=== PATIENT | female | born 1930 | race Caucasian/White ===

== ENCOUNTER 2018-05-07 15:46 | Inpatient (IN) | payer OTHER, MEDICARE ==
[~2018-05-07] VITALS: Ht 157.5 cm; Wt 51.0 kg
[~2018-05-07 15:46] MED LIST: COUMADIN5 M2 PO; DIGOXIN125 MCG PO; ELIQUIS2.5 M1 PO; FERROUS SULFAT325 M2 PO; LASIX20 M1 PO; METOPROLOL TART25 M1 PO; NORVASC2.5 M1 PO; OMEPRAZOLE20 M2 PO; TOPROL XL100 M1 PO
--- NOTE | 2018-05-07 15:57 | ED MVC/FALL/TRAUMA COMPLAINT ---
History of Present Illness General Chief Complaint: Fall Stated Complaint: FALL, LEFT LEG PAIN Source: patient, old records, EMS Exam Limitations: no limitations Vital Signs & Intake/Output Vital Signs & Intake/Output Vital Signs Date Time Temp Pulse Resp B/P B/P Pulse O2 O2 Flow FiO2 Mean Ox Delivery Rate 05/07 1656 99 15 129/85 95 Nasal 2.0L Cannula 05/07 1646 Room Air 05/07 1549 94 Nasal 2.0L Cannula 05/07 1549 98.4 107 18 113/75 89 Room Air Allergies Coded Allergies: pneumococcal 7-valent conjugate to (From PREVNAR) (SHOULDER TO ELBOW SWOLLEN AND RED FOR A WEEK 05/07/18) propranolol (UNKNOWN PER PT CANT REMEMBER 05/07/18) Reconcile Medications Apixaban (Eliquis) 2.5 MG TABLET 1 TAB PO BID BLOOD THINNER (Reported) Diltiazem HCl (Cardizem) 120 MG TABLET 1 TAB PO BID HEART/BP (Reported) Ferrous Sulfate 325 MG (65 MG IRON) TABLET 1 TAB PO DAILY SUPPLEMENT ( Reported) Furosemide (Lasix) 40 MG TABLET 1 TAB PO QAM DIURETIC (Reported) Oxycodone HCl/Acetaminophen (Percocet 5-325 MG Tablet) 5 MG-325 MG TABLET 1 TAB PO TID PRN PAIN (Reported) Triage Note: PT HAS FALLEN 3X TODAY. PT STATES THAT SHE FEELS "FLIGHTY" PT STATES THAT SHE HAS HX OF AFIB, ON THINNERS. STATES DID NOT FEEL LIKE HER HEART WENT INTO AFIB. SHE STATES THAT ONE OF HER FALLS SHE HIT HER HEAD. STATES THAT HER LEFT KNEE TO FOOT HURTS AND THERE IS SWELLING AND SHE STATES SHE COULD NOT WALK ON LEG . PT ALSO STARTED CARDIZEM. AOX4. Triage Nurses Notes Reviewed? yes HPI: 87F PMH HTN, atrial fibrillation on Eliquis, presents with multiple falls. Patient was in her usual state of health, when this morning her left knee felt weak. Her knee gave out on her and she fell to the ground, striking her left hip. She was able to get up on her own and without pain. She fell again in the same way about an hour later, was able to get up, and then fell a third time, this time striking her head. She denies any symptoms prior to the falls, denying chest pain, palpitations, lightheadedness, confusion. She reports the falls are due primarily to knee weakness. She reports mild left knee pain now but is otherwise well. She denies vision changes, n/v/d, hearing changes, weakness, numbness, chest pain, palpitations, SOB, abdominal pain, diarrhea, dysuria. Past History Travel History Traveled to [place] past 21 day No Medical History Any Pertinent Medical History? see below for history Neurological: NONE EENT: cataracts, macular degeneration Cardiovascular: AFIB, hypertension Respiratory: NONE Gastrointestinal: "benign" colon polyps removed approx 2010 in [place], [place]- Dr. David Hepatic: NONE Renal: NONE Musculoskeletal: degen joint disease, osteoarthritis, spinal stenosis Psychiatric: NONE Endocrine: NONE Blood Disorders: NONE Cancer(s): NONE [employer]/Reproductive: NONE History of MRSA: No History of VRE: No History of CDIFF: No Pneumonia Vaccine: 09/01/15 Surgical History Surgical History: appendectomy, cataract removal, tonsillectomy Psychosocial History Who do you live with Sister Services at Home None What is your primary language German Family History Family History, If Any: MOTHER (DM). , Age 79; Cause: ASHD (arteriosclerotic heart disease). FATHER, , Age 63; Cause: Esophageal cancer. SISTER, , Age 82; Cause: Cancer of unknown origin. Hx Contributory? No Review of Systems Review of Systems Constitutional: Reports: no symptoms. Eyes: Reports: no symptoms. Ears, Nose, Throat, Mouth: Reports: no symptoms. Respiratory: Reports: no symptoms. Cardiovascular: Reports: no symptoms. Gastrointestinal/Abdominal: Reports: no symptoms. Genitourinary: Reports: no symptoms. Musculoskeletal: Reports: no symptoms. Skin: Reports: no symptoms. Neurological/Psychological: Reports: no symptoms. All Other Systems: Reviewed and Negative Physical Exam Physical Exam General Appearance: well developed/nourished, no apparent distress Head: atraumatic, normal appearance Eyes: Bilateral: normal appearance, PERRL, EOMI, normal inspection. Ears, Nose, Throat, Mouth: hearing grossly normal, moist mucous membrane Neck: normal inspection, supple, full range of motion Respiratory: normal breath sounds, chest non-tender, no respiratory distress Cardiovascular: regular rate/rhythm Gastrointestinal: soft, non-tender Back: normal inspection, normal range of motion, no vertebral tenderness Extremities: normal range of motion Neurologic/Psych: awake, alert, oriented x 3, normal mood/affect Skin: intact, normal color, warm/dry Core Measures ACS in differential dx? No CVA/TIA Diagnosis No Sepsis Present: No Sepsis Focused Exam Completed? No Progress Differential Diagnosis: C/T/L spine injury, ext injury, pelvis injury, spinal cord injury Plan of Care: Orders Procedure Date/time Status Regular Diet 05/08 B Active ED Holding Orders 05/07 1755 Active Admit to inpatient 05/07 1755 Active Vital Signs 05/07 1755 Active Patient Data 05/07 175 Active URINE DRUG SCREEN FOR ER ONLY 05/07 155 Complete URINALYSIS 05/07 155 Complete PARTIAL THROMBOPLASTIN TIME 05/07 155 Complete PROTHROMBIN TIME 05/07 155 Complete ETHANOL 05/07 155 Complete COMPREHENSIVE METABOLIC PANEL 05/07 155 Complete CBC WITHOUT DIFFERENTIAL 05/07 155 Complete EKG 05/07 1549 Active XRY-CHEST XRAY, TWO VIEWS 05/07 UNK Active Laboratory Tests 05/07/18 1655: Urine Opiates Screen 270, Methadone Screen 57, Barbiturate Screen < 60, Ur Phencyclidine Scrn < 6.00, Amphetamines Screen < 100, U Benzodiazepines Scrn < 85, Urine Cocaine Screen < 50, Urine Cannabis Screen < 5.00, Urine Color YEL, Urine Clarity CLEAR, Urine pH 7.5, Ur Specific [place] 1.015, Urine Protein NEG, Urine Ketones TRACE H, Urine Nitrite NEG, Urine Bilirubin NEG, Urine Urobilinogen 2.0 H, Ur Leukocyte Esterase NEG, Ur Microscopic EXAM NOT REQUIRED , Urine Hemoglobin NEG, Urine Glucose NEG 05/07/18 1640: Anion Gap 11, Estimated GFR > 60, BUN/Creatinine Ratio 28.0 H, Glucose 113 H, Calcium 9.4, Total Bilirubin 1.4 H, AST 26, ALT 36, Alkaline Phosphatase 166 H , Total Protein 6.8, Albumin 3.7, Globulin 3.1, Albumin/Globulin Ratio 1.2, PT 14.8 H, INR 1.35 H, APTT 32, CBC w Diff NO MAN DIFF REQ, RBC 4.22, MCV 93.9, MCH 31.5 H, MCHC 33.5, RDW 15.6 H, MPV 7.2 L, Gran % 90.6 H, Lymphocytes % 5.2 L, Monocytes % 3.9, Eosinophils % 0.3, Basophils % 0, Absolute Granulocytes 10.4 H, Absolute Lymphocytes 0.6 L, Absolute Monocytes 0.5, Absolute Eosinophils 0, Absolute Basophils 0, Serum Alcohol < 10.0 Diagnostic Imaging: Viewed by Me: Radiology Read, CT Scan. Discussed w/RAD: Radiology Read, CT Scan. Radiology Impression: PATIENT: SHARAD MCGILL PRESENT AGE: 87 PATIENT ACCOUNT NO: [id number] : [birth year] LOCATION: ER ORDERING PHYSICIAN: Riya Lino MD SERVICE DATE: 05/07/18 EXAM TYPE: RAD - XRY-KNEE, LEFT EXAMINATION: XR KNEE, LEFT CLINICAL INFORMATION: Rule out fracture fall COMPARISON: None available at the time of this dictation. TECHNIQUE: frontal, lateral, tunnel and patella sunrise views FINDINGS: BONES: No fracture or dislocation is present. JOINTS: Narrowing of joint spaces suggest underlying mild DJD. SOFT TISSUE: There are heavy vascular calcifications. IMPRESSION: No fracture. Mild DJD and heavy vascular calcifications. DICTATED BY: Artie Petty MD DATE/TIME DICTATED:05/07/181657 PRUNE WASHER:RIAZ DATE/TIME TRANSCRIBED:05/07/181657 CONFIDENTIAL, DO NOT COPY WITHOUT APPROPRIATE AUTHORIZATION. <Electronically signed in Other Vendor System> SIGNED BY: Artie Petty MD 05/07/18 1703, PATIENT: SHARAD MCGILL PRESENT AGE: 87 PATIENT ACCOUNT NO: [id number] : [birth year] LOCATION: [facility] ORDERING PHYSICIAN: Riya Lino MD SERVICE DATE: 05/07/18 EXAM TYPE : RAD - XRY-HIP 2-3 VIEWS, LEFT EXAMINATION: XR HIP, LEFT , AP pelvis CLINICAL INFORMATION: Fall rule out fracture COMPARISON: None available at the time of this dictation. TECHNIQUE: Frontal and lateral views of the hip acquired. , AP pelvis FINDINGS: There is no evidence of acute fracture or dislocation. There are mild degenerative arthritic changes of the hip evident by sclerotic changes of the acetabular roof and narrowing of the joint space. Mild degenerative changes of the symphysis pubis. Mild degenerative changes of the SI joints. Adjacent pubic rami are intact. Surrounding soft tissues are unremarkable. Radiolucency projecting over the LEFT femoral neck on one view only felt to be an artifact. This does not persist on other views. IMPRESSION: Mild degenerative arthritis. No fracture. Normal radiograph does not entirely exclude the possibility of hip fracture. If there is a high clinical suspicion for a fracture, MRI might be indicated. DICTATED BY: Artie Petty MD DATE/TIME DICTATED:05/07/181658 PRUNE WASHER:RIAZ DATE/TIME TRANSCRIBED:1658 CONFIDENTIAL, DO NOT COPY WITHOUT APPROPRIATE AUTHORIZATION. < Electronically signed in Other Vendor System> SIGNED BY: Artie Petty MD 05/07/181704, PATIENT: SHARAD MCGILL PRESENT AGE: 87 PATIENT ACCOUNT NO: [id number] : [birth year] LOCATION: [facility] ORDERING PHYSICIAN: Riya Lino MD SERVICE DATE: 05/07/18 EXAM TYPE: CAT - CT HEAD WO IV CONTRAST EXAMINATION: CT HEAD WITHOUT CONTRAST CLINICAL INFORMATION: Status post fall with head strike. Patient is on Coumadin. Suspected intracranial bleed. COMPARISON: None TECHNIQUE: Contiguous axial imaging was performed from the skull base to vertex without intravenous administration of contrast. DLP: 539.9 mGy-cm FINDINGS: There is no evidence of acute intracranial hemorrhage or territorial infarction. No abnormal mass effect or midline shift is seen. Abdullahi to white matter differentiation is well preserved. No extra-axial fluid collections are identified. The ventricles are normal in size. Mild age- appropriate diffuse cortical atrophy and mild chronic microvascular deep white matter ischemic changes are present. Bilateral basal ganglia calcifications are noted. There is a sub-5 mm hypodensity identified without any mass effect involving the posterior limp of the internal capsule on the left, likely representing old lacunar infarction. The osseous structures and soft tissues are normal. The mastoid air cells and visualized portions of the paranasal sinuses are well aerated. IMPRESSION: 1. No acute intracranial pathology, specifically no acute intracranial hemorrhage.. 2. 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 DICTATED BY: Honey Batres MD DATE/TIME DICTATED:05/07/181625 PRUNE WASHER:RIAZ DATE/ TIME TRANSCRIBED:05/07/181625 CONFIDENTIAL, DO NOT COPY WITHOUT APPROPRIATE AUTHORIZATION. <Electronically signed in Other Vendor System> SIGNED BY: Honey Batres MD 05/07/18 1634 Departure Departure Disposition: STILL A PATIENT Condition: Stable Clinical Impression Primary Impression: Fall Qualifiers: Encounter type: initial encounter Qualified Code: W19.XXXA - Unspecified fall, initial encounter Secondary Impressions: Hypoxia, Left leg weakness Referrals: Mukesh Cornejo MD Departure Forms: Customer Survey General Discharge Information Admission Note Documentation of Exam: Documentation of any treatments & extenuating circumstances including Concerns Regarding Discharge (functional status, medication knowledge or non-compliance, living conditions, etc.) that warrant an admission rather than observation: multiple falls today due to left knee weakness, head strike on last fall, patient on Eliquis, hypoxic 87% by EMS requiring 4L NC. Will admit to medicine for repletion of electrolytes, case management, physical therapy, pulmonary consult, workup of unexplained hypoxia.
[2018-05-07] MEDS ORDERED: ELIQUIS2.5 M1 PO (16:32)
[2018-05-07] MEDS ORDERED: CARDIZEM120 M1 PO (16:33)
[2018-05-07] MEDS ORDERED: PERCOCET 5-3251 EACH PO (16:33)
[2018-05-07] MEDS ORDERED: LASIX40 M1 PO (16:34)
[2018-05-07] MEDS ORDERED: FERROUS SULFAT325 M3 PO (16:34)
--- NOTE | 2018-05-07 16:34 | CT SCAN REPORT ---
EXAMINATION: CT HEAD WITHOUT CONTRAST CLINICAL INFORMATION: Status post fall with head strike. Patient is on Coumadin. Suspected intracranial bleed. COMPARISON: None TECHNIQUE: Contiguous axial imaging was performed from the skull base to vertex without intravenous administration of contrast. DLP: 539.9 mGy-cm FINDINGS: There is no evidence of acute intracranial hemorrhage or territorial infarction. No abnormal mass effect or midline shift is seen. Abdullahi to white matter differentiation is well preserved. No extra-axial fluid collections are identified. The ventricles are normal in size. Mild age-appropriate diffuse cortical atrophy and mild chronic microvascular deep white matter ischemic changes are present. Bilateral basal ganglia calcifications are noted. There is a sub-5 mm hypodensity identified without any mass effect involving the posterior limp of the internal capsule on the left, likely representing old lacunar infarction. The osseous structures and soft tissues are normal. The mastoid air cells and visualized portions of the paranasal sinuses are well aerated. IMPRESSION: 1. No acute intracranial pathology, specifically no acute intracranial hemorrhage.. 2. 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
[2018-05-07 16:47] LABS: ABSOLUTE BASOPHIL COUNT 0 /CUMM (0.0-0.2); ABSOLUTE EOSINOPHIL COUNT 0 /CUMM (0.0-0.7); ABSOLUTE GRANULOCYTE CT 10.4 /CUMM (1.4-6.5); ABSOLUTE LYMPH COUNT 0.6 /CUMM (1.2-3.4); ABSOLUTE MONOCYTE COUNT 0.5 /CUMM (0.10-0.60); BASOPHIL % 0 % (0.0-2.0); EOSINOPHIL % 0.3 % (0-5); HEMATOCRIT 39.7 % (37-47); MEAN CORPUSCULAR HGB 31.5 PG (27.0-31.0); MEAN CORPUSCULAR HGB CONC 33.5 G/DL (33.0-37.0); MEAN CORPUSCULAR VOLUME 93.9 FL (81.0-99.0); MEAN PLATELET VOLUME 7.2 FL (7.4-10.4); PLATELET COUNT 320 /CUMM (130-400); RBC DISTRIBUTION WIDTH 15.6 % (11.5-14.5); RED BLOOD CELL CT 4.22 /CUMM (4.20-5.40); WHITE BLOOD CELL COUNT 11.5 /CUMM (4.8-10.8)
[2018-05-07 16:56] LABS: PT 14.8 SEC (9.4-12.5); PTT 32 SEC (25-37)
--- NOTE | 2018-05-07 17:03 | RADIOLOGY REPORT ---
EXAMINATION: XR KNEE, LEFT CLINICAL INFORMATION: Rule out fracture fall COMPARISON: None available at the time of this dictation. TECHNIQUE: frontal, lateral, tunnel and patella sunrise views FINDINGS: BONES: No fracture or dislocation is present. JOINTS: Narrowing of joint spaces suggest underlying mild DJD. SOFT TISSUE: There are heavy vascular calcifications. IMPRESSION: No fracture. Mild DJD and heavy vascular calcifications.
[2018-05-07 17:04] LABS: GRANULOCYTE % 90.6 % (42.2-75.2)
--- NOTE | 2018-05-07 17:05 | RADIOLOGY REPORT ---
EXAMINATION: XR HIP, LEFT , AP pelvis CLINICAL INFORMATION: Fall rule out fracture COMPARISON: None available at the time of this dictation. TECHNIQUE: Frontal and lateral views of the hip acquired. , AP pelvis FINDINGS: There is no evidence of acute fracture or dislocation. There are mild degenerative arthritic changes of the hip evident by sclerotic changes of the acetabular roof and narrowing of the joint space. Mild degenerative changes of the symphysis pubis. Mild degenerative changes of the SI joints. Adjacent pubic rami are intact. Surrounding soft tissues are unremarkable. Radiolucency projecting over the LEFT femoral neck on one view only felt to be an artifact. This does not persist on other views. IMPRESSION: Mild degenerative arthritis. No fracture. Normal radiograph does not entirely exclude the possibility of hip fracture. If there is a high clinical suspicion for a fracture, MRI might be indicated.
--- NOTE | 2018-05-07 17:26 | History & Physical ---
Karly Hernández 05/07/18 1724: General Information and HPI MD Statement: I have seen and personally examined SHARAD MCGILL and documented this H&P. The patient is a 87 year old F who presented with a patient stated chief complaint of []. Source of Information: patient, family, 81 year old sister present with whom the patient lives Exam Limitations: no limitations History of Present Illness: 87 year old female with PMH Afib on Eliquis, CHF, HTN, DJD, history of falls, history of PNA presenting with multiple mechanical falls today. Patient normally ambulates with a walker, but was not using it today. She states regardless of using the walker, her left knee 'gives out' on her abruptly. Each fall was witnessed by her 81 year old sister with whom she lives. The first two falls they were able to get her up, but had to call EMS on the third fall. She did hit her head, but denies LOC. She endorses slight dizziness today and generally not feeling well although she cannot describe it. She attributes this to her Lasix dose of 40mg daily. She states she spends 4 hours on the toilet each day. She denies palpitations, n/v/d, chest pain, SOB, headache, blurry vision, abdominal pain, dysuria. Of note: she was recently hospitalized at [facility] for PNA and was discharged to an STR. She was released from the STR on April 29. She states she does not use oxygen at home and her follow up appointments with her doctors have all shown sats in 90s. She does not know why she is hypoxic here in the ED and does not feel short of breath. Allergies/Medications Allergies: Coded Allergies: pneumococcal 7-valent conjugate to (From PREVNAR) (SHOULDER TO ELBOW SWOLLEN AND RED FOR A WEEK 05/07/18) propranolol (UNKNOWN PER PT CANT REMEMBER 05/07/18) Compliance With Home Meds: GOOD Past History Travel History Traveled to [place] past 21 day No Medical History Neurological: NONE EENT: cataracts, macular degeneration Cardiovascular: AFIB, hypertension Respiratory: NONE Gastrointestinal: "benign" colon polyps removed approx 2010 in [place], [place]- Dr. David Hepatic: NONE Renal: NONE Musculoskeletal: degen joint disease, osteoarthritis, spinal stenosis Psychiatric: NONE Endocrine: NONE Blood Disorders: NONE Cancer(s): NONE ADMISSIONS OFFICER/Reproductive: NONE History of MRSA: No History of VRE: No History of CDIFF: No Pneumonia Vaccine: 09/01/15 Surgical History Surgical History: appendectomy, cataract removal, tonsillectomy Past Family/Social History Family History Relations & Conditions if any MOTHER (DM). , Age 79; Cause: ASHD (arteriosclerotic heart disease). FATHER, , Age 63; Cause: Esophageal cancer. SISTER, , Age 82; Cause: Cancer of unknown origin. Psychosocial History Where do you live? Home (with her sister who is 81) Who Do You Live With? with her younger sister, Awa Spak Services at Home: None Primary Language: Telugu Smoking Status: Never Smoked ETOH Use: denies use Illicit Drug Use: denies illicit drug use Living Will? no Power of Cnc Specialist/HCP? no Functional Ability ADLs Independent: dressing, eating, toileting, bathing. Ambulation: cane IADLs Independent: shopping, housework, finances, food prep, telephone, medication admin. Unknown: transportation. Review of Systems Review of Systems Constitutional: Reports: weakness. Denies: chills, fever, malaise. EENTM: Denies: no symptoms. Cardiovascular: Denies: no symptoms. Respiratory: Denies: no symptoms. GI: Denies: no symptoms. Genitourinary: Denies: no symptoms. Musculoskeletal: Reports: joint pain. Denies: back pain, neck pain. Skin: Reports: no symptoms (tip of nose with black lesion), lesions. Exam & Diagnostic Data Last 24 Hrs of Vital Signs/I&O Vital Signs Date Time Temp Pulse Resp B/P B/P Pulse O2 O2 Flow FiO2 Mean Ox Delivery Rate 05/07 1656 99 15 129/85 95 Nasal 2.0L Cannula 05/07 1646 Room Air 05/07 1549 94 Nasal 2.0L Cannula 05/07 1549 98.4 107 18 113/75 89 Room Air Intake & Output 05/07 1600 05/07 0800 05/07 0000 Intake Total Output Total Balance Patient 130 lb Weight Weight Estimated Measurement Method Physical Exam General Appearance Alert, Oriented X3, Cooperative, No Acute Distress, pettite woman Skin see HEENT Skin Temp/Moisture Exam: Warm/Dry HEENT Atraumatic, PERRLA, Tip of nose with black 3x2mm lesion Neck Supple Cardiovascular irregularly irregular Lungs Clear to Auscultation Abdomen Normal Bowel Sounds, Soft, No Tenderness Extremities Normal Pulses, decreased range of motion LLE at knee joint 2/2 pain. small area of ecchymosis medial aspect of knee Assessment/Plan Assessment: 87 year old female with PMH Afib on Eliquis, CHF, HTN, DJD, history of falls, history of PNA presenting with multiple mechanical falls (three in one day). Work up in the ED revealed hypoxia, hypokalemia, and slight elevated WBC. All imaging was negative for fx. CXR pending. Patient will be admitted to general medicine floor for further care of the following: Problem List: 1. Witnessed mechanical falls (x3 in one day) 2. Hypokalemia 3. Acute hypoxic respiratory distress 4. Mild hyperbilirubinemia 5. h/o Afib on Eliquis 6. h/o CHF unknown EF Admission Data: VS T98.4 P107 RR18 BP 113/75 Sat 89%RA WBC: 11.5; Potassium 3.1; EKG: Afib; UA negative for leuks/nit CT head: 1. No acute intracranial pathology, specifically no acute intracranial hemorrhage XR Left Hip:Mild degenerative arthritis. No fracture. Left Knee XR: No fracture. Mild DJD and heavy vascular calcifications. CXR: pending #Witnessed multiple falls-may be mechanical or due to dehydration from lasix -PT eval/treat -XR workup negative for fracture -hold lasix for now #Hypokalemia K 3.1-likely 2/2 lasix -Repleted with 20mEq in ED; will give 40mEq more -will monitor in AM for response #Acute hypoxic respiratory distress-may be residual from recent pneumonia vs new infection? -On 2L NC with sats in 90s -CXR pending #Mild hyperbilirubinemia-likely reactive -will monitor #h/o Afib -continue eliquis #h/o CHF uncertain EF -will hold lasix for now DVT: ALPS/lovenox Diet: heart healthy As Ranked By This Provider Problem List: 1. Leukocytosis 2. Fall 3. Hypokalemia due to loss of potassium Core Measures/Misc (07/04) Acute Coronary Syndrome ACS Diagnosis: No Congestive Heart Failure Congestive Heart Failure Diagnosis No Cerebrovascular Accident CVA/TIA Diagnosis: No VTE (View Protocol) VTE Risk Factors Immobility No Mechanical VTE Prophylaxis d/t N/A MechProphylax Ordered No VTE Pharm Prophylaxis d/t NA PharmProphylax ordered Sepsis (View protocol) Sepsis Present: No If YES complete Sepsis Event Note If YES complete Sepsis Event Note Paul De La Vega MD 05/07/18 1827: Core Measures/Misc (07/04) Sepsis (View protocol) If YES complete Sepsis Event Note If YES complete Sepsis Event Note Resident Review Statement Resident Statement: examined this patient, discussed with validation intern, agreed with validation intern, discussed with family, reviewed EMR data (avail), discussed with nursing , discussed with case mgmt, reviewed images, amended to note Other Findings: Ms. Mcgill is an 87-year-old female with past medical history of hypertension, atrial fibrillation on apixaban, osteoarthritis, macular degeneration and CHF followed by Dr. Florez who presents after a fall. The patient notes that she was recently discharged from [facility] for pneumonia and CHF to short- term rehab and was discharged from rehab on April 29. Today, she felt her left knee become weak and had a fall with positive head strike. She notes that she felt a little dizzy beforehand. She was not on the ground long and was able to get up pretty quickly with the help of her sister. She denies any chest pain, shortness of breath, presyncope, or chills. On presentation, vital signs were T 98.4, HR 107, RR 18, BP 113/75, saturating 89% on room air.. General: Patient appears stated age, alert and orientedx3. HEENT: PERRL. No goiter. No palpable lymph nodes. Cardiovascular: Irregularly irregular lungs: Clear to auscultation bilaterally. Abdomen: Normal bowel sounds. Nontender to palpation in all four quadrants. Skin: No rashes. Neuro: CN II-XII intact without any focal deficits. Ext: Left knee reduced range of motion Laboratories were significant for white blood cell count 11.5, potassium 3.1, total bilirubin 1.4, alkaline phosphatase 106, INR 1.35. Head CT, hip x-ray, knee x-ray were all negative for any acute processes.. She will be admitted to general [facility] and treated for the following problems: 1. Fall 2. Acute hypoxic respiratory failure 3. Leukocytosis 4. Hyperbilirubinemia #Fall: Patient presents after a fall. Initially seemed mechanical but she did report some mild dizziness beforehand. She says that she has been urinating frequently because of the increased furosemide dose. She will likely require short-term rehab. -Orthostatic vitals -Hold furosemide -PT evaluation #Acute hypoxic respiratory failure: Unclear etiology at this time. She denies any shortness of breath and clinically does not seem to have any pneumonia or other respiratory process. She does have a leukocytosis but no fever. -Chest x-ray -Oxygen therapy #Hyperbilirubinemia: Mild, potentially reactive. -Trend LFTs -Consider right upper quadrant ultrasound if it does not resolve #Chronic medical problems -Continue home medications DVT prophylaxis with apixaban Heart healthy diet Full code Gutierrez Quarles MD 05/08/18 0001: General Information and HPI Statement: I have seen and personally examined SHARAD MCGILL and documented this H&P. The patient is a 87 year old F who presented with a patient stated chief complaint of [fall]. Source of Information: patient Exam Limitations: no limitations Allergies/Medications Home Med list Apixaban (Eliquis) 2.5 MG TABLET 1 TAB PO BID BLOOD THINNER (Reported) Diltiazem HCl (Cardizem) 120 MG TABLET 1 TAB PO BID HEART/BP (Reported) Ferrous Sulfate 325 MG (65 MG IRON) TABLET 1 TAB PO DAILY SUPPLEMENT ( Reported) Furosemide (Lasix) 40 MG TABLET 1 TAB PO QAM DIURETIC (Reported) Oxycodone HCl/Acetaminophen (Percocet 5-325 MG Tablet) 5 MG-325 MG TABLET 1 TAB PO TID PRN PAIN (Reported) Past History Medical History EENT: cataracts, macular degeneration Cardiovascular: AFIB, hypertension Gastrointestinal: "benign" colon polyps removed approx 2010 in [place], [place]- Dr. David Musculoskeletal: degen joint disease, osteoarthritis, spinal stenosis Surgical History Surgical History: appendectomy, cataract removal, tonsillectomy Past Family/Social History Psychosocial History Smoking Status: Never Smoked ETOH Use: denies use Illicit Drug Use: denies illicit drug use Employment History Employment Retired Review of Systems Review of Systems Constitutional: Reports: see HPI. Exam & Diagnostic Data Last 24 Hrs of Vital Signs/I&O Vital Signs Date Time Temp Pulse Resp B/P B/P Pulse O2 O2 Flow FiO2 Mean Ox Delivery Rate 05/07 2001 97.8 97 20 120/80 95 Nasal 2.0L Cannula 05/07 1930 Nasal 2.0L Cannula 05/07 191 Nasal 2.0L Cannula 05/07 1903 99 18 154/78 98 Nasal 2.0L Cannula 05/07 1656 99 15 129/85 95 Nasal 2.0L Cannula 05/07 1646 Room Air 05/07 1549 94 Nasal 2.0L Cannula 05/07 1549 98.4 107 18 113/75 89 Room Air Intake & Output 05/08 0800 05/08 0000 05/07 1600 Intake Total 480 Output Total Balance 480 Intake, Oral 480 Patient 130 lb Weight Weight Estimated Measurement Method Physical Exam General Appearance Alert, Oriented X3, Cooperative, No Acute Distress Skin No Rashes Skin Temp/Moisture Exam: Warm/Dry HEENT Atraumatic, PERRLA Neck Supple Lymphatic Axillary nl, Cervical nl Cardiovascular irregularly irregular Lungs Clear to Auscultation, Normal Air Movement Abdomen Normal Bowel Sounds, Soft, No Tenderness Extremities Normal Pulses, decreased range of motion LLE at knee joint 2/2 pain. small area of ecchymosis medial aspect of knee Last 24 Hrs of Labs/Kirill: Laboratory Tests 05/07/18 1655: Urine Opiates Screen 270, Methadone Screen 57, Barbiturate Screen < 60, Ur Phencyclidine Scrn < 6.00, Amphetamines Screen < 100, U Benzodiazepines Scrn < 85, Urine Cocaine Screen < 50, Urine Cannabis Screen < 5.00, Urine Color YEL, Urine Clarity CLEAR, Urine pH 7.5, Ur Specific [place] 1.015, Urine Protein NEG, Urine Ketones TRACE H, Urine Nitrite NEG, Urine Bilirubin NEG, Urine Urobilinogen 2.0 H, Ur Leukocyte Esterase NEG, Ur Microscopic EXAM NOT REQUIRED , Urine Hemoglobin NEG, Urine Glucose NEG 05/07/18 1640: Anion Gap 11, Estimated GFR > 60, BUN/Creatinine Ratio 28.0 H, Glucose 113 H, Calcium 9.4, Total Bilirubin 1.4 H, AST 26, ALT 36, Alkaline Phosphatase 166 H , Total Protein 6.8, Albumin 3.7, Globulin 3.1, Albumin/Globulin Ratio 1.2, PT 14.8 H, INR 1.35 H, APTT 32, CBC w Diff NO MAN DIFF REQ, RBC 4.22, MCV 93.9, MCH 31.5 H, MCHC 33.5, RDW 15.6 H, MPV 7.2 L, Gran % 90.6 H, Lymphocytes % 5.2 L, Monocytes % 3.9, Eosinophils % 0.3, Basophils % 0, Absolute Granulocytes 10.4 H, Absolute Lymphocytes 0.6 L, Absolute Monocytes 0.5, Absolute Eosinophils 0, Absolute Basophils 0, Serum Alcohol < 10.0 Core Measures/Misc (07/04) Sepsis (View protocol) If YES complete Sepsis Event Note If YES complete Sepsis Event Note Attending MD Review Statement Attending Statement Attending MD Statement: examined this patient, discuss w/resident/PA/RESIDENTIAL DOOR UNIT INSTALLER, agreed w/resident/PA/RESIDENTIAL DOOR UNIT INSTALLER, amended to note Attending Assessment/Plan: This patient is an 87 year old female with a significant past medical history for Afib on Eliquis, CHF, HTN, DJD, history of falls, presenting with multiple mechanical falls today. Patient normally ambulates with a walker, but was not using it today. She states regardless of using the walker, her left knee 'gives out' on her abruptly. She did hit her head, but denies LOC. She endorses slight dizziness today and generally not feeling well although she cannot describe it. She attributes this to her Lasix dose of 40mg daily. Work up in the ED revealed hypoxia, hypokalemia, and slight elevated WBC. All imaging were negative for fracture. Will likely need 3 nights for ECF placement.
--- NOTE | 2018-05-07 19:08 | RADIOLOGY REPORT ---
EXAMINATION: XR CHEST CLINICAL INFORMATION: Hypoxia. COMPARISON: Chest x-ray 09/30/2016 TECHNIQUE: 2 views of the chest were obtained. FINDINGS: There are small bilateral pleural effusions blunting the right and left costophrenic angle. No significant pulmonary vascular congestion. Lung volume is low which does accentuate the bronchovascular markings. Cardiomediastinal contours are unchanged. There is vascular wall calcifications of aorta. Multilevel degenerative spondylosis of dorsal spine disc height narrowing and endplate spurring of the vertebrae. IMPRESSION: Small bilateral pleural effusions. No focal consolidation. No significant central pulmonary vascular congestion.
[2018-05-07 20:01] VITALS: BP 120/80
[2018-05-08 06:29] VITALS: BP 132/76
[2018-05-08 09:36] LABS: ABSOLUTE BASOPHIL COUNT 0 /CUMM (0.0-0.2); ABSOLUTE EOSINOPHIL COUNT 0.2 /CUMM (0.0-0.7); ABSOLUTE GRANULOCYTE CT 8.6 /CUMM (1.4-6.5); ABSOLUTE LYMPH COUNT 1.1 /CUMM (1.2-3.4); ABSOLUTE MONOCYTE COUNT 0.4 /CUMM (0.10-0.60); BASOPHIL % 0.4 % (0.0-2.0); EOSINOPHIL % 1.9 % (0-5); GRANULOCYTE % 83.2 % (42.2-75.2); HEMATOCRIT 36.1 % (37-47); MEAN CORPUSCULAR HGB 31.8 PG (27.0-31.0); MEAN CORPUSCULAR HGB CONC 33.8 G/DL (33.0-37.0); MEAN PLATELET VOLUME 7.7 FL (7.4-10.4); PLATELET COUNT 316 /CUMM (130-400); RBC DISTRIBUTION WIDTH 15.3 % (11.5-14.5); RED BLOOD CELL CT 3.84 /CUMM (4.20-5.40); WHITE BLOOD CELL COUNT 10.4 /CUMM (4.8-10.8)
--- NOTE | 2018-05-08 10:02 | PN- Housestaff ---
See Addendum Subjective Follow-up For: multiple falls hypoxia Complaints: no complaints Subjective: Patient states she rested okay overnight. She continues to have pain in left knee and decreased range of motion. She also continues to feel dizzy even while in bed. Denies fever, chills, n/v/d, chest pain, SOB, abdominal pain. Review of Systems Constitutional: Reports: see HPI. Objective Last 24 Hrs of Vital Signs/I&O Vital Signs Date Time Temp Pulse Resp B/P B/P Pulse O2 O2 Flow FiO2 Mean Ox Delivery Rate 05/08 0629 98.2 90 20 132/76 96 Nasal 2.0L Cannula 05/08 0000 95 Nasal 2.0L Cannula 05/07 2001 97.8 97 20 120/80 95 Nasal 2.0L Cannula 05/07 1930 Nasal 2.0L Cannula 05/07 1913 Nasal 2.0L Cannula 05/07 1903 99 18 154/78 98 Nasal 2.0L Cannula 05/07 1656 99 15 129/85 95 Nasal 2.0L Cannula 05/07 1646 Room Air 05/07 1549 94 Nasal 2.0L Cannula 05/07 1549 98.4 107 18 113/75 89 Room Air Intake & Output 05/08 1600 05/08 0800 05/08 0000 Intake Total 130 480 Output Total Balance 130 480 Intake, IV 10 Intake, Oral 120 480 Patient 111 lb Weight Physical Exam General Appearance: Alert, Oriented X3, Cooperative, No Acute Distress Skin: 3x2mm black lesion on tip on nose; unchanged from previous day Skin Temp/Moisture Exam: Warm/Dry HEENT: Atraumatic, PERRLA Neck: Supple Cardiovascular: irregularly irregular Lungs: Clear to Auscultation Abdomen: Normal Bowel Sounds, Soft, No Tenderness Extremities: No Edema, Normal Pulses, left knee with decreased ROM. small area of ecchymosis medial aspect Assessment/Plan Assessment: 87 year old female with PMH Afib on Eliquis, CHF, HTN, DJD, history of falls, history of PNA presenting with multiple mechanical falls (three in one day). Work up in the ED revealed hypoxia, hypokalemia, and slight elevated WBC. All imaging was negative for fx. CXR pending. Patient will be admitted to general medicine floor for further care of the following: Problem List: 1. Witnessed mechanical falls (x3 in one day) 2. Hypokalemia 3. Acute hypoxic respiratory distress 4. Mild hyperbilirubinemia 5. h/o Afib on Eliquis 6. h/o CHF unknown EF #Witnessed multiple falls-may be mechanical or due to dehydration from lasix -PT eval/treat -XR workup negative for fracture -hold lasix for now #Hypokalemia K 3.1-likely 2/2 lasix -Repleted with 20mEq in ED; 40mEq more give 05/07 -3.8 today -continue to monitor #Acute hypoxic respiratory distress-may be residual from recent pneumonia vs new infection? -On 2L NC with sats in 90s; wean as tolerated today -CXR: small bilateral pleural effusions #Mild hyperbilirubinemia-likely reactive -will monitor #h/o Afib -continue eliquis #h/o CHF uncertain EF -will hold lasix for now DVT: ALPS/lovenox Diet: heart healthy Problem List: 1. Fall 2. Left leg weakness Pain Ratin Pain Location: none Pain Goal: Remain pain free Pain Plan: see a/p Tomorrow's Labs & Rationales: bep
[2018-05-08 15:19] VITALS: BP 112/74
[2018-05-08 21:37] VITALS: BP 100/80
[2018-05-08 22:07] VITALS: BP 122/76; BP 134/78
[2018-05-09 06:15] VITALS: BP 130/60
--- NOTE | 2018-05-09 08:02 | PN- Housestaff ---
See Addendum Subjective Follow-up For: fall hypoxia Complaints: left knee pain Subjective: Patient states she still has left knee pain and feels unsafe to walk even with a walker. She does feel less dizzy off lasix. Denies fever, chills, n/v/d, chest pain, SOB, abdominal pain. Review of Systems Constitutional: Reports: see HPI. Objective Last 24 Hrs of Vital Signs/I&O Vital Signs Date Time Temp Pulse Resp B/P B/P Pulse O2 O2 Flow FiO2 Mean Ox Delivery Rate 05/09 0615 98.4 90 18 130/60 91 05/08 2207 98.2 97 18 122/76 92 Room Air 05/08 2137 99.6 95 20 100/80 90 05/08 1658 97 05/08 1519 98.8 107 18 112/74 91 Intake & Output 05/09 1600 05/09 0800 05/09 0000 Intake Total 700 Output Total 400 Balance -400 700 Intake, Oral 700 Output, Urine 400 Physical Exam General Appearance: Alert, Oriented X3, Cooperative, No Acute Distress Skin: No Rashes Skin Temp/Moisture Exam: Warm/Dry HEENT: Atraumatic, PERRLA Neck: Supple Cardiovascular: No Murmurs, irregularly irregular Lungs: Clear to Auscultation Abdomen: Normal Bowel Sounds, Soft, No Tenderness Extremities: No Edema, left knee decreased range of motion 2/2 pain, ecchymosis medial aspect left knee Assessment/Plan Assessment: 87 year old female with PMH Afib on Eliquis, CHF, HTN, DJD, history of falls, history of PNA presenting with multiple mechanical falls (three in one day). Work up in the ED revealed hypoxia, hypokalemia, and slight elevated WBC. All imaging was negative for fx. CXR pending. Patient will be admitted to general medicine floor for further care of the following: Problem List: 1. Witnessed mechanical falls (x3 in one day) 2. Hypokalemia 3. Acute hypoxic respiratory distress 4. Mild hyperbilirubinemia 5. h/o Afib on Eliquis 6. h/o CHF unknown EF #Witnessed multiple falls-may be mechanical or due to dehydration from lasix -PT treat -XR workup negative for fracture -hold lasix for now #Hypokalemia K 3.1-likely 2/2 lasix -Repleted with 20mEq in ED; 40mEq more give 05/07 -3.5 today; will replete today -check a magnesium today -continue to monitor #Acute hypoxic respiratory distress-may be residual from recent pneumonia vs new infection? -On Room Air currently and sats 90 -CXR: small bilateral pleural effusions #Mild hyperbilirubinemia-likely reactive -will monitor #h/o Afib -continue eliquis #h/o CHF uncertain EF -will hold lasix for now -Will contact Dr. Florez today about Lasix dosing and dispo DVT: ALPS/lovenox Diet: heart healthy Problem List: 1. Fall 2. Hypokalemia due to loss of potassium 3. Left leg weakness Pain Ratin Pain Location: none Pain Goal: Remain pain free Pain Plan: see a/p Tomorrow's Labs & Rationales: bep magnesium
[2018-05-09 14:46] VITALS: BP 130/72
--- NOTE | 2018-05-09 15:01 | Discharge Summary ---
Visit Information Visit Dates Admission Date: 05/07/18 Discharge Date: 05/10/18 Hospital Course Course Attending Physician: Washington Francois MD Primary Care Physician: Elijah CISNEROS,Jamey Zurita Hospital Course: Ms. Eldridge is an 87-year-old female with past medical history of hypertension, atrial fibrillation on apixaban, osteoarthritis, macular degeneration and CHF followed by Dr. Florez who presented after a fall On presentation, vital signs were T 98.4, HR 107, RR 18, BP 113/75, saturating 89% on room air.. Laboratories were significant for white blood cell count 11.5, potassium 3.1, total bilirubin 1.4, alkaline phosphatase 106, INR 1.35. Head CT, hip x-ray, knee x-ray were all negative for any acute processes.. She was admitted to general [facility] and treated for the following problems: 1. Fall 2. Acute hypoxemia secondary to atelectasis 3. Leukocytosis 4. Hyperbilirubinemia #Fall: Patient presented after a fall. Likely mechanical based on the history. Imaging did not reveal any acute fractures. She did report some dizziness so we held her furosemide. PT evaluate the patient and recommended STR. Cardiology was consulted for furosemide dosing and recommended holding the furosemide for now and to watch weights daily. If she gains weight, they can consider dosing as necessary. #Acute hypoxemia secondary to atelectasis: This is likely secondary to atelectasis and improved spontaneously. The patient is no longer on oxygen therapy #Hyperbilirubinemia: Mild, potentially reactive. LFTs trended down spontaneously. #Chronic medical problems: We continued other home medications. Allergies: Coded Allergies: pneumococcal 7-valent conjugate to (From PREVNAR) (SHOULDER TO ELBOW SWOLLEN AND RED FOR A WEEK 05/07/18) propranolol (UNKNOWN PER PT CANT REMEMBER 05/07/18) Disposition Summary Disposition Principal Diagnosis: 1. Fall Additional Diagnosis: 2. Acute hypoxemia secondary to atelectasis 3. Leukocytosis 4. Hyperbilirubinemia Discharge Disposition: SNF Discharge Instructions General Discharge Information Code Status: Full Code Patient's Diet: Heart healthy Patient's Activity: As tolerated Follow-Up Instructions/Appts: Please take all medications as directed. Please follow-up with primary care and cardiology. Medications at Discharge Discharge Medications: Stop taking the following medications: Furosemide (Lasix) 40 MG TABLET ORAL Every Morning Continue taking these medications: Apixaban (Eliquis) 2.5 MG TABLET 1 Tablet ORAL TWICE DAILY Comments: Last Taken:05/10/18 Time: 9:15 AM Diltiazem HCl (Cardizem) 120 MG TABLET 1 Tablet ORAL TWICE DAILY Comments: Last Taken:05/10/18 Time: 9:15 AM Oxycodone HCl/Acetaminophen (Percocet 5-325 MG Tablet) 5 MG-325 MG TABLET 1 Tablet ORAL THREE TIMES DAILY as needed for PAIN Comments: Last Taken:05/10/18 Time: 2:30 PM WAS GIVEN OXYCODONE 5MG PO WHILE IN HOSPITAL Ferrous Sulfate (Ferrous Sulfate) 325 MG (65 MG IRON) TABLET 1 Tablet ORAL DAILY Comments: Last Taken:05/10/18 Time: 9:15 AM Copies To: Franck CISNEROS,Jan; Elijah CISNEROS,Jamey Zurita Attending MD Review Statement Documenting Attending: Washington Francois MD Other Findings: The patient as seen and discussed with house staff and Cardiology (Dr. Jaimes) . OK to send to STR ([facility]) today and follow weights there. If increased fluid consider restart Lasix on lower dose (20 mg 2x/week). Her last EF at [facility] was normal as per cardiology).
[2018-05-09 22:39] VITALS: BP 140/80
[2018-05-10 06:56] VITALS: BP 142/78
--- NOTE | 2018-05-10 07:56 | PN- Housestaff ---
See Addendum Subjective Follow-up For: mechanical fall vs dizziness LLE weakness Complaints: no complaints Subjective: Patient states she 'doesn't feel quite right' still, but does feel better off the lasix. She does not have any knee pain when laying in bed. She experiences pain with movement of left knee. Denies fever, chills, n/v/d, chest pain, SOB, palpitations. Review of Systems Constitutional: Reports: see HPI. Objective Last 24 Hrs of Vital Signs/I&O Vital Signs Date Time Temp Pulse Resp B/P B/P Pulse O2 O2 Flow FiO2 Mean Ox Delivery Rate 05/10 0900 82 122/70 98 Room Air 05/10 0656 98.0 74 20 142/78 96 Room Air 05/10 0000 Room Air 05/09 2239 97.9 99 19 140/80 95 Room Air 05/09 1600 Room Air 05/09 1446 98.2 87 18 130/72 92 Room Air 05/09 1148 Room Air Intake & Output 05/10 1600 05/10 0800 05/10 0000 Intake Total 360 Output Total 400 Balance -400 360 Intake, Oral 360 Output, Urine 400 Patient 112 lb Weight Physical Exam General Appearance: Alert, Oriented X3, Cooperative, No Acute Distress Skin: tip of nose with 3x2mm black lesion Skin Temp/Moisture Exam: Warm/Dry HEENT: Atraumatic, PERRLA Neck: Supple Cardiovascular: irregularly irregular Lungs: Clear to Auscultation Abdomen: Normal Bowel Sounds, Soft, No Tenderness Extremities: No Edema, Normal Pulses Assessment/Plan Assessment: 87 year old female with PMH Afib on Eliquis, CHF, HTN, DJD, history of falls, history of PNA presenting with multiple mechanical falls (three in one day). Work up in the ED revealed hypoxia, hypokalemia, and slight elevated WBC. All imaging was negative for fx. CXR pending. Patient will be admitted to general medicine floor for further care of the following: Problem List: 1. Witnessed mechanical falls (x3 in one day) 2. Hypokalemia 3. Acute hypoxic respiratory distress 4. Mild hyperbilirubinemia 5. h/o Afib on Eliquis 6. h/o CHF unknown EF #Witnessed multiple falls-may be mechanical or due to dehydration from lasix -PT eval: decide STR vs home today -XR workup negative for fracture -hold lasix for now #Hypokalemia K 3.1-likely 2/2 lasix-RESOLVED -Repleted with 20mEq in ED; 40mEq more give 05/07 -3.5 05/10 repleted with 40mEq PO -4.3 today #Acute hypoxic respiratory distress-may be residual from recent pneumonia vs new infection? -On Room Air currently and sats 96 -CXR: small bilateral pleural effusions #Mild hyperbilirubinemia-likely reactive -will monitor #h/o Afib -continue eliquis #h/o HFpEF; last echo 08/[address] Nathan -will hold lasix for now -Cards Consult regarding Lasix dose DVT: ALPS/lovenox Diet: heart healthy Dispo: STR vs home later today Problem List: 1. Left leg weakness 2. Fall Pain Ratin Pain Location: none Pain Goal: Remain pain free Pain Plan: see a/p Tomorrow's Labs & Rationales: none
[2018-05-10 09:00] VITALS: BP 122/70
--- NOTE | 2018-05-10 10:41 | Cons- Cardiology ---
General Information and HPI Consulting Request Date of Consult: 05/10/18 Requested By: Washington Francois MD Reason for Consult: Congestive heart failure by history Source of Information: patient, family, old records Exam Limitations: no limitations History of Present Illness: The patient is an 87-year-old female followed by Dr. Juárez with a history of permanent atrial fibrillation on Eliquis, hypertension, macular degeneration, gastroesophageal reflux disease, chronic diastolic heart failure, who was admitted with recurrent falls. Patient was recently admitted to [facility] for pneumonia and congestive heart failure was diuresed with improvement. At that time an echocardiogram was performed on March 24, 2018 demonstrating an ejection fraction of 55-65% with moderate aortic stenosis. Patient was discharged to rehab and then returned home approximately April 29. On the day of admission the patient was weak and tired and had recurrent falls 1 of them where she struck her head. There is no loss of consciousness. The patient was felt to be dehydrated and was admitted. Her Lasix was held. According to her sister who is present during the examination she states that the patient feels very weak and tired after taking her morning Lasix. She has to sit in the bathroom for a few hours due to constant urination prior to being able to get up. The patient states she feels better since admission. She is being evaluated by PT to determine whether she will require short-term rehab or she can return to home. Allergies/Medications Allergies: Coded Allergies: pneumococcal 7-valent conjugate to (From PREVNAR) (SHOULDER TO ELBOW SWOLLEN AND RED FOR A WEEK 05/07/18) propranolol (UNKNOWN PER PT CANT REMEMBER 05/07/18) Home Med List: Apixaban (Eliquis) 2.5 MG TABLET 1 TAB PO BID BLOOD THINNER (Reported) Diltiazem HCl (Cardizem) 120 MG TABLET 1 TAB PO BID HEART/BP (Reported) Ferrous Sulfate 325 MG (65 MG IRON) TABLET 1 TAB PO DAILY SUPPLEMENT ( Reported) Furosemide (Lasix) 40 MG TABLET 1 TAB PO QAM DIURETIC (Reported) Oxycodone HCl/Acetaminophen (Percocet 5-325 MG Tablet) 5 MG-325 MG TABLET 1 TAB PO TID PRN PAIN (Reported) Current Medications: Current Medications Sig/Jacobo Start time Last Medication Dose Route Stop Time Status Admin Acetaminophen 650 MG Q6P PRN 07/21 1815 AC PO Apixaban 2.5 MG BID 05/07 2100 AC 05/10 PO 0913 Diltiazem HCl 120 MG BID 05/07 2100 AC 05/10 PO 0913 Ferrous Sulfate 325 MG DAILY 05/08 0900 AC 05/10 PO 0913 Oxycodone HCl 5 MG Q6P PRN 05/07 1830 AC 05/10 PO 0914 Potassium Chloride 40 MEQ ONCE ONE 05/09 1445 DC 05/09 PO 05/09 1446 1642 Review of Systems Review of Systems: Eyes no blurred or double vision Ears no deafness or ringing Nose and throat no recurrent sinusitis Lungs per history of present illness Heart per history of present illness Abdomen no nausea vomiting Musculoskeletal occasional muscle and joint pains Psych no anxiety or depression Neuro without recurrent headache or seizures Endocrine no heat or cold intolerance Past History Travel History Traveled to [place] past 21 day No Medical History Blood Transfusion Hx: No Neurological: NONE EENT: cataracts, macular degeneration Cardiovascular: AFIB, hypertension Respiratory: NONE Gastrointestinal: "benign" colon polyps removed approx 2010 in [place], [place]- Dr. David Hepatic: NONE Renal: NONE Musculoskeletal: degen joint disease, osteoarthritis, spinal stenosis Psychiatric: NONE Endocrine: NONE Blood Disorders: NONE Cancer(s): NONE MINE ANALYST/Reproductive: NONE Surgical History Surgical History: appendectomy, cataract removal, tonsillectomy Family History Relations & Conditions If Any: MOTHER (DM). , Age 79; Cause: ASHD (arteriosclerotic heart disease). FATHER, , Age 63; Cause: Esophageal cancer. SISTER, , Age 82; Cause: Cancer of unknown origin. Psychosocial History Where Do You Live? Home (with her sister who is 81) Who Do You Live With? with her younger sister, Awa Spak Services at Home: Nursing, Physical Therapy Primary Language: Maldivian Smoking Status: Never Smoked ETOH Use: denies use Illicit Drug Use: denies illicit drug use Living Will? no Power of Mounter Automatic/HCP? no Functional Ability ADLs Independent: dressing, eating, toileting, bathing. Ambulation: cane IADLs Independent: shopping, housework, finances, food prep, telephone, medication admin. Unknown: transportation. Employment History Employment: Retired Exam & Diagnostic Data Vital Signs and I&O Vital Signs Date Time Temp Pulse Resp B/P B/P Pulse O2 O2 Flow FiO2 Mean Ox Delivery Rate 05/10 0900 82 122/70 98 Room Air 05/10 0656 98.0 74 20 142/78 96 Room Air 05/10 0000 Room Air 05/09 2239 97.9 99 19 140/80 95 Room Air 05/09 1600 Room Air 05/09 1446 98.2 87 18 130/72 92 Room Air 05/09 1148 Room Air Intake & Output 05/10 1600 05/10 0800 05/10 0000 05/09 1600 05/09 0800 05/09 0000 Intake Total 360 360 700 Output Total 400 350 400 Balance -400 360 10 -400 700 Intake, Oral 360 360 700 Number 1 Bowel Movements Output, Urine 400 350 400 Patient 112 lb Weight Physical Exam: Patient is a well-developed well-nourished female appearing in no acute distress HEENT is unremarkable Neck is supple there is no JVD Lungs are clear Heart irregular rhythm S1 and S2 are normal gallops or rubs 2/6 systolic ejection murmur at right upper sternal border Abdomen bowel sounds positive Extremities without edema Neuro without focal deficits Psych alert and oriented Lymph no adenopathy Labs/Kirill Results: Laboratory Tests 05/10 05/09 0639 0633 Chemistry Sodium (137 - 145 mmol/L) 138 137 Potassium (3.5 - 5.1 mmol/L) 4.3 3.5 Chloride (98 - 107 mmol/L) 104 101 Carbon Dioxide (22 - 30 mmol/L) 25 27 Anion Gap (5 - 16) 8 10 BUN (7 - 17 mg/dL) 15 16 Creatinine (0.5 - 1.0 mg/dL) 0.5 0.6 Estimated GFR (>60 ml/min) > 60 > 60 BUN/Creatinine Ratio (7 - 25 %) 30.0 H 26.7 H Magnesium (1.6 - 2.3 mg/dL) 1.9 1.9 Total Bilirubin (0.2 - 1.3 mg/dL) 1.1 Direct Bilirubin (< 0.4 mg/dL) 0.4 AST (14 - 36 U/L) 60 H ALT (9 - 52 U/L) 56 H Alkaline Phosphatase (<127 U/L) 196 H Total Protein (6.3 - 8.2 g/dL) 5.7 L Albumin (3.5 - 5.0 g/dL) 2.9 L Diagnostic Data EKG Results No EKG available CXR Results IMPRESSION: Small bilateral pleural effusions. No focal consolidation. No significant central pulmonary vascular congestion. Other Results CT of the head IMPRESSION: 1. No acute intracranial pathology, specifically no acute intracranial hemorrhage.. 2. 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 Assessment/Plan Assessment/Plan 1. Weakness and dizziness with near syncope most likely secondary to mild dehydration due to Lasix 2. Persistent atrial fibrillation on Eliquis 3. Hypertension stable 4. History of chronic diastolic heart failure no evidence of acute exacerbation 5. Moderate aortic stenosis Recommendations 1. Given her extreme weakness and fatigue secondary to diuretics would continue to hold Lasix and have her reevaluated in the office as an outpatient 2. I had a long discussion with the patient and her sister regarding continuation of Eliquis for stroke prevention given her frequent falls. The sister states that these episodes only occurred recently therefore we agreed to continue with Eliquis. They are aware of the possibility of bleeding. 3. Continue diltiazem for rate control 4. PT for ambulation Thank you for allowing [facility] to participate in the care of your patient. Consult Acknowledgment - Thank you for your consult request.
--- NOTE | 2018-05-10 13:08 | Patient Discharge Instructions ---
Discharge Instructions General Discharge Information You were seen/treated for: Fall Watch for these problems: Fever, chest pain, shortness of breath Special Instructions: Please take all medications as directed. Please follow-up with primary care and cardiology. Diet Continue normal diet: Yes Activity Full Activity/No Limits: Yes Acute Coronary Syndrome Inclusion Criteria At DC or during hospital stay patient has or had the following: ACS DIAGNOSIS No Discharge Core Measures Meds if any: Prescribed or Continued at Discharge Meds if any: NOT Prescribed or Continued at Discharge Congestive Heart Failure Inclusion Criteria At DC or during hospital stay patient has or had the following: CHF DIAGNOSIS No Discharge Core Measures Meds if any: Prescribed or Continued at Discharge Meds if any: NOT Prescribed or Continued at Discharge Cerebrovascular accident Inclusion Criteria At DC or during hospital stay patient has or had the following: CVA/TIA Diagnosis No Discharge Core Measures Meds if any: Prescribed or Continued at Discharge Meds if any: NOT Prescribed or Continued at Discharge Venous thromboembolism Inclusion Criteria VTE Diagnosis No VTE Type NONE VTE Confirmed by (Test) NONE Discharge Core Measures - Per Current guidelines, there needs to be overlap - treatment for the first 5 days of Warfarin therapy. - If discharged on Warfarin prior to 5 days of - overlap therapy, the patient will need to be - assessed for post discharge needs including - *Post discharge parental anticoagulation - *Warfarin and/or parental anticoagulation education - *Follow up date to check INR post discharge At least 5 days overlap therapy as Inpatient No Meds if any: Prescribed or Continued at Discharge Note: Overlap Therapy is Warfarin and Anticoagulant Meds if any: NOT Prescribed or Continued at Discharge
[2018-05-10 13:10] VITALS: BP 122/70
== END 2018-05-10 14:48 | DRG 206 ==
LOC: ERH 15:46 → 2NA 17:55 → ERHI 17:55 → ENRESERV 18:04 → ENTRNSPT 19:11 → EDTRNSPTSTS 19:21 → EDTRNSPT 19:21 → 2NA 19:26 → CMPTRNSPT 19:46 → 2NA 05-09 14:23 → ENPENDDIS 05-10 13:14 → 2NA 05-10 14:48
PROVIDERS: Internal Medicine
DX: J98.11 Atelectasis (principal); I50.32 Chronic diastolic (congestive) heart failure; I48.1 Persistent atrial fibrillation; R09.02 Hypoxemia; I11.0 Hypertensive heart disease with heart failure; E86.0 Dehydration; I35.0 Nonrheumatic aortic (valve) stenosis; H35.30 Unspecified macular degeneration; K21.9 Gastro-esophageal reflux disease without esophagitis; E87.6 Hypokalemia; E80.6 Other disorders of bilirubin metabolism; T50.1X5A Adverse effect of loop [high-ceiling] diuretics, initial encounter; D72.829 Elevated white blood cell count, unspecified; Z86.010 Personal history of colon polyps; Z79.01 Long term (current) use of anticoagulants; Z91.81 History of falling; Z90.49 Acquired absence of other specified parts of digestive tract; Z88.8 Allergy status to other drugs, medicaments and biological substances
CPT/HCPCS: 2NAP; 36592; 71046; 73502-LT; 73560-LT; 80307; 81003; 82436; 93005; 93010; 97110-GO; 97116-GO; 97161-GP; 97530-GO; G0480